=== PATIENT | male | born 1990 | race Asian ===

== ENCOUNTER 2019-08-23 12:52 | Outpatient (CLI) | payer BC ==
--- NOTE | 2019-08-23 13:34 | ULT ---
Exam: Bilateral scrotal ultrasound including color and spectral Doppler imaging: HISTORY: Urinary frequency FINDINGS: Right kidney measures 3.5 x 2.4 x 2.1 cm. Left testes measures 3.5 x 2.5 x 2.1 cm. Right and left epididymal regions are within normal limits with a 0.2 cm left epididymal head cyst. No solid intratesticular mass. No evidence for testicular torsion. Trace bilateral hydrocele fluid. IMPRESSION: Unremarkable bilateral scrotal ultrasound. No intratesticular mass or testicular torsion.
--- NOTE | 2019-08-24 07:37 | ULT ---
ULTRASOUND RETROPERITONEUM COMPLETE: (RENAL) DATE: 08/23/2019 HISTORY: 29 year old male with urinary frequency FINDINGS: The right kidney measures 11.5 x 5.5 x 5 cm. The left kidney measures 11.5 x 5 x 6 cm. Both kidneys have normal parenchymal echogenicity. There is no hydronephrosis. No moderate sized or large renal cystic or solid renal lesion is identified. Cursory images of the urinary bladder demonstrate no gross abnormality. IMPRESSION: Normal
== END 2019-08-23 12:53 | disposition home or self-care (01) ==
LOC: BICULT 12:52
PROVIDERS: ATTEND Urology
DX: R35.0 Frequency of micturition (principal); R39.15 Urgency of urination
CPT/HCPCS: 76770; 76870; 93976